=== PATIENT | male | born 1985 | race Caucasian/White ===

== ENCOUNTER 2016-08-01 09:43 | Emergency (ER) | payer OTHER, MEDICARE, MEDICAID ==
[~2016-08-01] VITALS: Ht 175.3 cm; Wt 102.1 kg
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
[2016-08-01] MEDS ORDERED: flexeril PO (11:40)
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
[2016-08-01 12:51] VITALS: BP 191/91
== END 2016-08-01 12:52 | disposition home or self-care (01) ==
LOC: ER 09:47
DX: S13.4XXA Sprain of ligaments of cervical spine, initial encounter (principal); V43.52XA Car driver injured in collision with other type car in traffic accident, initial encounter; Y92.414 Local residential or business street as the place of occurrence of the external cause; Y99.8 Other external cause status
CPT/HCPCS: 72125; 99282